=== PATIENT | male | born 1965 | race Hispanic/Latino ===

== ENCOUNTER 2024-03-15 18:52 | Emergency (ER) | payer OTHER ==
[~2024-03-15] VITALS: Ht 180.3 cm; Wt 93.0 kg
[2024-03-15] MEDS ORDERED: ACETAMINOPHEN 325 MG TAB ONE (19:54)
[2024-03-15] MEDS: ACETAMINOPHEN 325 MG TAB PO STA (20:00)
[2024-03-15 20:10] LABS: BASOPHILS # (AUTO) 0.1 (0.0-0.1); EOSINOPHILS % 0.6 % (0.0-6.0); HEMATOCRIT 45.8 % (38.2-49.6); HEMOGLOBIN 15.5 g/dL (14.0-18.0); LYMPHOCYTES # (AUTO) 0.8 (1.0-3.2); LYMPHOCYTES % 12.6 % (18.0-39.1); MEAN CORPUSCULAR HEMOGLOBIN 30.9 pg (28-32); MEAN CORPUSCULAR HGB CONC 33.8 g/dL (31-35); MEAN CORPUSCULAR VOLUME 91.4 fL (81-99); MONOCYTES # (AUTO) 0.8 (0.2-0.8); MONOCYTES % 12.9 % (4.4-11.3); NEUTROPHILS # (AUTO) 4.6 (2.1-6.9); NEUTROPHILS % 72.7 % (38.7-80.0); PLATELET COUNT 182 x10e3/uL (140-360); RED BLOOD COUNT 5.01 x10e6/uL (4.3-5.7); RED CELL DISTRIBUTION WIDTH 13.1 % (11.7-14.4); WHITE BLOOD COUNT 6.28 x10e3/uL (4.8-10.8)
[2024-03-15] MEDS: SODIUM CHLORIDE 0.9% 1000ML 1,000 ML IV STA (20:23)
[2024-03-15 20:27] LABS: ALBUMIN/GLOBULIN RATIO 1.1 (0.8-2.0); ANION GAP 16.1 mmol/L (8-16); BILIRUBIN,TOTAL 0.8 mg/dL (0.2-1.2); CALCIUM 9.2 mg/dL (8.4-10.2); CREATININE, SERUM 1.03 mg/dL (0.72-1.25); POTASSIUM 4.1 mmol/L (3.5-5.1); TOTAL PROTEIN 7.6 g/dL (6.5-8.1)
[2024-03-15 20:33] LABS: TROPONIN I 0.005 ng/mL (0-0.300)
[2024-03-15 20:35] LABS: B-TYPE NATRIURETIC PEPTIDE2 53.9 pg/mL (0-100)
[2024-03-15] MEDS ORDERED: PAXLOVID 150-11 EAC1 PO (21:06)
[2024-03-15 21:14] VITALS: PULSE 95; RESP 16; TEMP 102.8
[2024-03-15] MEDS: IBUPROFEN 600 MG TAB PO STA (21:23)
[2024-03-15 21:56] VITALS: BP 149/83; PULSE 95; RESP 16; TEMP 102; O2SAT 97
== END 2024-03-15 21:24 | disposition home or self-care (01) ==
LOC: ER 18:56
DX: R50.9 Fever, unspecified (principal); U07.1 COVID-19; R51.9 Headache, unspecified; R53.81 Other malaise; E11.65 Type 2 diabetes mellitus with hyperglycemia; I10 Essential (primary) hypertension; I50.9 Heart failure, unspecified
CPT/HCPCS: 36415; 71045; 80053; 82550; 83518; 83605; 83690; 83880; 84484; 85025; 87040; 87070; 87400; 93005; 99284; J2543; J7030; U0002